=== PATIENT | male | born 1950 | race Caucasian/White ===

== ENCOUNTER 2020-10-05 07:57 | Outpatient (RCR) | payer MEDICARE, BC, SELFPAY ==
--- NOTE | 2020-10-05 17:19 | PTOPEVAL ---
Thank you for referring Bayron Rocha to [facility].? The patient is scheduled to be seen for therapy? ____x/week for ___ weeks. Please review, sign, date and return this plan of care SARINA. I agree with and certify that the following plan of care is medically necessary. Referring Physician Date Admitting Provider: Attending Provider: PHYSICIAN NOT ON STAFF Referring Provider: *PT Outpatient Evaluation Start: 10/05/20 08:11 Freq: Status: Active Protocol: Document 10/05/20 08:10 [facility] (Rec: 10/05/20 09:28 [facility] [id number]) Therapy Assessment Status Assessment Status Assessment Status Evaluation Outpatient Past Medical History Past Medical History Source of Past Medical History Patient Other Source of Past Medical History see intake forms Evaluation Information Problem Diagnosis parkinsons disorder, gait instability, h/o cervical fracture Onset 09/13/20 Subjective Information patient reports he is coming Query Text:As Reported By Patient/ to PT for dizzyness. he Family reports he is coming to for his speech. he reports he has had speech therapy last year due to a slight stroke. he reports he is still having tingling/numbness in the R side of his body. he reports he is unsure if he has parkinsons or not for sure. he reports he was placed on medicine for parkinsons but reports he has since stopped taking it due to increased dizziness. he reports he has been having dizziness sinec the summer. he reports he was struggling with low blood pressure. he reports dizziness with come and go. he reports he feels it a bit at all times . he reports he does not know when it will come on or get worse. he reports he is not sure what makes it worse. he reportsno dizzyness with laying down. he reports dizziness beginning when he sits up and then in standing. he reports he has had a recent brain aneurysm and an
--- NOTE | 2020-10-06 08:48 | STOPEVAL ---
SPEECH THERAPY INITIAL EVALUATION: Thank you for referring Bayron Rocha to [facility].? The patient is scheduled to be seen for therapy?1x/week for 2 weeks. Please review, sign, date and return this plan of care SARINA. I agree with and certify that the following plan of care is medically necessary. Referring Physician Date Attending Provider: PHYSICIAN NOT ON STAFF *ST Outpatient Evaluation Start: 10/05/20 09:08 Freq: Status: Active Protocol: Document 10/05/20 09:09 [facility] (Rec: 10/05/20 10:17 [email or web address] [id number]) Therapy Assessment Status Assessment Status Assessment Status Evaluation Outpatient Past Medical History Past Medical History Source of Past Medical History Patient Neurological History Hx Cerebrovascular Accident (CVA) Yes Hx Parkinson's Disease Yes: possible dx; pt not sure Cardiovascular History Hx Atrial Fibrillation Yes Hx Coronary Artery Bypass Graft Yes Hx Pacemaker Yes Hx Other Cardiac Disorders Yes Respiratory History Hx Asthma Yes Hx Chronic Obstructive Pulmonary Disease Yes (COPD) Gastrointestinal History Hx Other Gastrointestinal Disorders Yes: 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 Pain History History of Any Previous or Ongoing No Significant History Instance of Pain Evaluation Information Problem Diagnosis dysphagia, dysarthria Additional Evaluation Detail Upon interview with pt, he sited many complaints; i.e.: - the stroke settled in my voice box and the flap in my throat - I get choked and I cough alot - my speech got weaker immediately after the stroke - its harder for me to think sometimes what I'm talking about and I keep forgetting stuff - my volume got worse and it seems low to me & I can't tell how loud I'm talking - I'm forgetful and I loose my train of thought right in the middle - I can't think of what to say at times - I run out of air while I'm talking Pt reported that even after all the ST last year to
== END 2020-10-11 11:26 | disposition home or self-care (01) ==
LOC: CHSPT 07:57
PROVIDERS: PCP Family Medicine
DX: R13.10 Dysphagia, unspecified (principal); R47.1 Dysarthria and anarthria; Z87.81 Personal history of (healed) traumatic fracture; G20 Parkinson's disease
CPT/HCPCS: 92523; 92526; 92610; 96125; 97110; 97112; 97162

== ENCOUNTER 2023-11-13 09:37 | Outpatient (CLI) | payer MEDICARE, BC, SELFPAY ==
--- NOTE | ~2023-11-13 | CT_ITS ---
EXAMINATION: CT LE RT wo con DATE: 11/13/2023 09:58 INDICATION: Hematoma at the right thigh. TECHNIQUE: High resolution computed tomography (CT) of the right hip and proximal to mid thigh was pe rformed without intravenous contrast. Additional sagittal and coronal reconstructions were performed. Automated exposure control and iterative reconstruction technique were employed. The dose-length pro duct was 953.20 mGy-cm. COMPARISON: None FINDINGS: Bone alignment is normal. No fracture or suspected avascular necrosis. Mild right hip osteoarthritis. Small os acetabulum on the anterosuperior rim of the right acetabulum. No hip joint effusion. Small right and minimal left hydroceles. No evident hematoma or other abnormal fluid collections. Calcifica tion at the right side of the mildly enlarged prostate.. Visualized portion bladder is normal. IMPRESSION: 1. Small right and minimal left hydroceles at the scrotum. No hematoma, right hip joint effusion or o ther abnormal fluid collections. 2. Mild right hip osteoarthritis. No acute osseous abnormality. Reviewed, dictated and finalized at location A. [facility] [employer] IMPRESSION: 1. Small right and minimal left hydroceles at the scrotum. No hematoma, right h ip joint effusion or other abnormal fluid collections. 2. Mild right hip osteoarthritis. No acute osseous abnormality.
== END 2023-11-13 09:38 | disposition home or self-care (01) ==
LOC: CHSIMG 09:39
PROVIDERS: PCP Family Medicine; Visit Provider Family Medicine
DX: S70.11XA Contusion of right thigh, initial encounter (principal); M16.11 Unilateral primary osteoarthritis, right hip; M17.11 Unilateral primary osteoarthritis, right knee; N43.3 Hydrocele, unspecified
CPT/HCPCS: 73700